=== PATIENT | female | born 1965 | race African-American/Black ===

== ENCOUNTER 2016-08-29 07:23 | Emergency (ER) | payer MEDICAID, OTHER ==
[~2016-08-29] VITALS: Ht 167.6 cm; Wt 70.0 kg
[2016-08-29 07:24] VITALS: BP 135/100; PULSE 96; RESP 20; TEMP 97.7; O2SAT 99
[2016-08-29] MEDS ORDERED: SITA50 PO (07:53)
[2016-08-29] MEDS ORDERED: GLIP5TAB8 PO (07:53)
[2016-08-29] MEDS ORDERED: CLIN1CAP6 PO (07:54)
--- NOTE | 2016-08-29 08:57 | PD ---
HPI Chief Complaint: Eye Problems/Injury Time Seen by Provider: 08:35 Travel History International Travel<30 days: No Contact w/Intl Traveler<30days: No Traveled to known affect area: No History of Present Illness HPI 51yo F with PMH of DM presents to the ED with c/o right eye pain that started today. States pain is in right eye and felt like something popped. +Watery eye. Denies any fever, visual changes, headache, chest pain, sob, n/v, abdominal pain, focal weakness or numbness. Pt denies any trauma. PFSH Past Medical History Diabetes: Yes Patient Takes Glucophage: No ?: Unknown LMP: 08/10/16 Past Surgical History Section: Yes (x 3) Social History Alcohol Use: Yes (socially) Tobacco Use: No Substance Use: No Allergies-Medications (Allergen,Severity, Reaction): Coded Allergies: Seafood (Verified Allergy, Severe, 08/29/16) Reported Meds & Prescriptions Reported Meds & Active Scripts Active Reported Clindamycin (Clindamycin HCl) 300 Mg Cap 300 Mg PO Q6H Januvia (Sitagliptin Phosphate) 50 Mg Tab 50 Mg PO DAILY Glipizide 5 Mg Tab 5 Mg PO DAILY Take 30 minutes before a meal Review of Systems Except as stated in HPI: all other systems reviewed are Neg Physical Exam Narrative GENERAL: 51yo F not in distress. SKIN: Focused skin assessment warm/dry. HEAD: Atraumatic. Normocephalic. EYES: Pupils equal and round at 3mm bilaterally. Right eye: Injected conjunctiva. EOMI. +Small corneal abrasion at 9 o'clock. CARDIOVASCULAR: Regular rate and rhythm. No murmur appreciated. RESPIRATORY: No accessory muscle use. Clear to auscultation. Breath sounds equal bilaterally. GASTROINTESTINAL: Abdomen soft, non-tender, nondistended. MUSCULOSKELETAL: No obvious deformities. No clubbing. No cyanosis. No edema. NEUROLOGICAL: Awake and alert. No obvious cranial nerve deficits. Motor grossly within normal limits. Normal speech. PSYCHIATRIC: Appropriate mood and affect; insight and judgment normal. Data Data Last Documented VS Vital Signs Date Time Temp Pulse Resp B/P Pulse Ox O2 Delivery O2 Flow Rate FiO2 08/29/16 07:42 08/29/16 07:24 97.7 96 20 99 Room Air Orders Acetaminophen (Tylenol) (08/29/16 09:45) Tetracaine 0.5% Opth Soln (Tetracaine 0. (08/29/16 09:45) Ed Poc Ultrasound (08/29/16 ) [facility] Medical Decision Making Medical Screen Exam Complete: Yes Emergency Medical Condition: Yes Differential Diagnosis Viral conjunctivitis vs. corneal abrasion vs. glaucoma Narrative Course 51yo F with right eye pain today. Pt has injected conjunctiva in right eye. Small corneal abrasion seen on flurescein exam. US right eye at bedside showed no vitreous hemorrhage, retinal or lens dislocation. Pt given acetaminophen with some improvement of pain. Pt to follow up with ophthalmology as outpatient. Return precautions given. Diagnosis Primary Impression: Corneal abrasion, right Qualified Code: S05.01XA - Corneal abrasion, right, initial encounter Referrals: Laurie Brock MD call for appointment Patient Instructions: Narcotic given in the ED Departure Forms: Tests/Procedures Additional Instructions: Please follow up with your PMD in 3-7 days. Return to the ED if symptoms worsen. Med/Other Pt SpecificInfo: Prescription(s) given Scripts Acetaminophen (Acetaminophen Extra Strength)500 Mg Yly186 Mg PO Q6H PRN (PAIN SCALE 1 TO 4) #20 TAB Ref 0 Prov:Rose Valente DO 08/29/16 Erythromycin Opth Oint 5 Mg/Gm Oint1 Applic RIGHT EYE BID 7 Days Ref 0 Prov:Rose Valente DO 08/29/16 Rose Valente DO Aug 29, 2016 08:57
[2016-08-29] MEDS ORDERED: ACETAMINOPHEN 325 MG TAB PO ONE (09:45)
[2016-08-29] MEDS ORDERED: TETRACAINE 0.5% OPTH SOLN 4 ML BTL RIGHT EYE ONE (09:45)
[2016-08-29] MEDS ORDERED: ACET500T36 PO (11:02)
[2016-08-29] MEDS ORDERED: ERYTOIN10 RIGHT EYE (11:02)
[2016-08-29 11:20] VITALS: BP 137/89
== END 2016-08-29 11:30 | disposition home or self-care (01) ==
LOC: NEPE 07:23
DX: S05.01XA Injury of conjunctiva and corneal abrasion without foreign body, right eye, initial encounter (principal); E11.9 Type 2 diabetes mellitus without complications; Z79.4 Long term (current) use of insulin; X58.XXXA Exposure to other specified factors, initial encounter
CPT/HCPCS: 99283